=== PATIENT | male | born 1940 | race Caucasian/White ===

== ENCOUNTER 2017-08-11 10:05 | Emergency (ER) | payer MEDICARE ==
[~2017-08-11] VITALS: Ht 172.7 cm; Wt 94.0 kg
[2017-08-11] MEDS ORDERED: LIPITOR40 M1 PO (10:27)
[2017-08-11] MEDS ORDERED: PLAVIX75 MG PO (10:28)
[2017-08-11] MEDS ORDERED: SPIRIVA HANDIH18 MCG IN (10:29)
[2017-08-11] MEDS ORDERED: PANTOPRAZOLE SO40 MG PO (10:29)
[2017-08-11] MEDS ORDERED: AVAPRO150 MG PO (10:29)
[2017-08-11] MEDS ORDERED: ASPIRIN81 MG PO (10:29)
[2017-08-11 11:53] VITALS: BP 133/71
== END 2017-08-11 11:55 | disposition home or self-care (01) ==
LOC: ED 10:05
DX: R60.0 Localized edema (principal); M79.605 Pain in left leg